=== PATIENT | female | born 1970 | race Caucasian/White ===

== ENCOUNTER 2019-03-23 16:27 | Emergency (ER) | payer MEDICAID ==
[~2019-03-23] VITALS: Ht 172.7 cm; Wt 97.0 kg
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
--- NOTE | 2019-03-23 16:41 | NUR ---
MED RECC ATTEMPTED. PATIENT DOESN'T KNOW MEDICINES. EXTERNAL HX FUNCTION NOT PULLING ANY MEDICINE REPORTS SHE FILLS RX AT [facility] IN [place]-WILL CONTACT PHARMACY TO CALL FOR MED RECC
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
[2019-03-23] MEDS ORDERED: ASPIRIN 81 MG TABLET CHEW ONE (16:56)
[2019-03-23] MEDS ORDERED: ASPIRIN 81 MG TABLET CHEW PO ONE (17:00)
[2019-03-23] MEDS ORDERED: FURO40TA6 PO (17:03)
[2019-03-23] MEDS ORDERED: LISI-170 PO (17:03)
[2019-03-23] MEDS ORDERED: AMLO10TA4 PO (17:03)
[2019-03-23] MEDS ORDERED: METO25TA35 PO (17:03)
--- NOTE | 2019-03-23 17:03 | NUR ---
Miter Grinder Operator called milena for [facility] - input into system prescribed lasix, metoprolol, lisinopril, norvasc by dr. nhi wallace ([phone])
[2019-03-23 17:13] VITALS: BP 128/70
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
[2019-03-23 17:26] LABS: ALBUMIN 3.4 g/dL (3.4-5.0); ANION GAP 11 mmol/L (5-15); CHLORIDE 114 mmol/L (98-107)
[2019-03-23 17:28] LABS: CREATININE 1.49 mg/dL (0.55-1.02)
[2019-03-23 17:45] LABS: BASOPHILS # (AUTO) 0.05 x10^3/uL (0-0.1); BASOPHILS % (AUTO) 1 % (0-1); EOSINOPHILS # (AUTO) 0.28 x10^3/uL (0-0.4); EOSINOPHILS % (AUTO) 3 % (1-7); LYMPHOCYTES # (AUTO) 1.77 x10^3/uL (1-3.4); LYMPHOCYTES % (AUTO) 22 % (22-44); MD NO; MEAN CORPUSCULAR HEMOGLOBIN 24.7 pg (27.0-34.8); MEAN CORPUSCULAR HGB CONC 31.2 g/dL (32.4-35.8); MEAN CORPUSCULAR VOLUME 79.2 fL (80-100); MEAN PLATELET VOLUME 7.9 fL (7.4-10.4); MONOCYTES % (AUTO) 9 % (2-9); NEUTROPHILS # (AUTO) 5.36 x10^3/uL (1.8-6.8); NEUTROPHILS % (AUTO) 66 % (42-75); PLATELET COUNT 356 x10^3/uL (130-400); RED BLOOD COUNT 3.41 x10^6/uL (3.82-5.3)
--- NOTE | 2019-03-23 18:08 | NUR ---
Patient/Caregiver given discharge instructions and they have confirmed that they understand the instructions. Patient ambulatory with steady gait.
== END 2019-03-23 18:09 | disposition home or self-care (01) ==
LOC: ED 16:52
DX: R06.00 Dyspnea, unspecified (principal); I50.9 Heart failure, unspecified
CPT/HCPCS: 36415; 71045; 80048; 82040; 84484; 85025; 99284

== ENCOUNTER 2019-04-02 12:06 | Inpatient (IN) | payer MEDICAID ==
[~2019-04-02] VITALS: Ht 172.7 cm; Wt 94.5 kg
[~2019-04-02 12:06] MED LIST: AMLO10TA4 PO; FURO40TA6 PO; LISI-170 PO; METO25TA35 PO
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
--- NOTE | 2019-04-02 12:27 | NUR ---
NO WOUND NOTED ON PT'S HEAD+
--- NOTE | 2019-04-02 12:38 | NUR ---
MD GUTIERRES COMPLETED
--- NOTE | 2019-04-02 12:53 | NUR ---
AFTER XRAY COMPLETED, LAB AT BEDSIDE
[2019-04-02 13:06] LABS: MEAN CORPUSCULAR HGB CONC 30.5 g/dL (32.4-35.8); MEAN CORPUSCULAR VOLUME 75.3 fL (80-100); MEAN PLATELET VOLUME 7.3 fL (7.4-10.4); PLATELET COUNT 364 x10^3/uL (130-400); RED BLOOD COUNT 3.61 x10^6/uL (3.82-5.3); RED CELL DISTRIBUTION WIDTH 20.2 % (9.6-15.2)
[2019-04-02 13:18] LABS: ALBUMIN 3.4 g/dL (3.4-5.0); ANION GAP 8 mmol/L (5-15); CALCIUM 8.6 mg/dL (8.5-10.1); CHLORIDE 116 mmol/L (98-107)
[2019-04-02 13:24] LABS: BASOPHILS # (AUTO) 0.08 x10^3/uL (0-0.1); BASOPHILS % (AUTO) 1 % (0-1); EOSINOPHILS # (AUTO) 0.07 x10^3/uL (0-0.4); EOSINOPHILS % (AUTO) 1 % (1-7); LYMPHOCYTES # (AUTO) 1.76 x10^3/uL (1-3.4); LYMPHOCYTES % (AUTO) 29 % (22-44); MD SCAN; MONOCYTES # (AUTO) 0.53 x10^3/uL (0.2-0.8); MONOCYTES % (AUTO) 9 % (2-9); NEUTROPHILS # (AUTO) 3.73 x10^3/uL (1.8-6.8); NEUTROPHILS % (AUTO) 61 % (42-75)
[2019-04-02 13:25] LABS: ALANINE AMINOTRANSFERASE 33 U/L (12-78); ALKALINE PHOSPHATASE 111 U/L (45-117); BILIRUBIN,TOTAL 0.8 mg/dL (0.2-1.0); CREATININE 0.93 mg/dL (0.55-1.02); TOTAL PROTEIN 7.1 g/dL (6.4-8.2)
--- NOTE | 2019-04-02 13:33 | NUR ---
PT IN BATHROOM CONNECTED TO HER ROOM AND HAD ALREADY URINATED. PT GIVEN WATER AND EXPLAINED TO HER I NEED A URINE SAMPLE LIZA
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
[2019-04-02 14:31] LABS: MICROSCOPIC AUTO
[2019-04-02 14:38] LABS: AMPHETAMINE SCREEN, URINE Negative (Negative); BARBITURATE SCREEN, URINE Negative (Negative); BENZODIAZEPINE SCREEN, URINE Negative (Negative); CANNABINOID SCREEN, URINE Positive (Negative); COCAINE SCREEN, URINE Negative (Negative); CULTURE INDICATED? YES; METHADONE SCREEN, URINE Negative (Negative); OPIATE SCREEN, URINE Negative (Negative)
[2019-04-02 14:40] LABS: ACETAMINOPHEN < 2 mcg/mL (10-30); SALICYLATE LEVEL < 1.7 mg/dL (2.8-20.0)
--- NOTE | 2019-04-02 15:31 | NUR ---
AWAKE, WATCHING TV
--- NOTE | 2019-04-02 17:08 | NUR ---
WATCHING TV/SLEEPING. NO DISTRESS
--- NOTE | 2019-04-02 19:15 | NUR ---
CONTINUES TO HAVE SITTER OUTSIDE ROOM. PT QUITE AND COOPERATIVE
--- NOTE | 2019-04-02 20:25 | NUR ---
REPORT OF PT FROM CHRIS LOZANO AND ASSUMING CARE OF PT AT THIS TIME.
--- NOTE | 2019-04-02 20:50 | NUR ---
GABY GROVE RE-EVALUATING PT. PT STATES THAT SHE STILL FEELS SUICIDAL DESPITE SOBERING UP. BREATHALIZER .89.
--- NOTE | 2019-04-02 21:14 | NUR ---
REPORT TO ALON PEREZ.
--- NOTE | 2019-04-02 22:25 | NUR ---
PT ASLEEP IN [facility] AT THIS TIME; RASHID. SITTER OUTSIDE OF PT ROOM FOR DIRECT OBSERVATION OF PATIENT.
--- NOTE | 2019-04-02 22:38 | NUR ---
Note joseph in EDM - 04/02/19 at 2240 by LHAFEN DAVIS RN: SPOKE WITH ALFREDO Arias RN ON 2N. PT WILL NOT NR ACCEPTED BECAUSE THEY ARE WORRIED ABOUT ETOH DETOX. DRAGLINE OILER AWARE.
--- NOTE | 2019-04-02 22:40 | NUR ---
TP RN: SPOKE WITH IBRAHIMA Arias RN ON 2N. PT WILL NOT NR ACCEPTED BECAUSE THEY ARE WORRIED ABOUT ETOH DETOX. RIBBON INKER AWARE.
--- NOTE | 2019-04-02 23:14 | NUR ---
PT ASLEEP IN [facility] AT THIS TIME; NADN. APONTE IS OUTSIDE OF PT ROOM FOR DIRECT OBSERVATION OF PT AT THIS TIME.
--- NOTE | 2019-04-02 23:26 | NUR ---
Pt woken to repeat breathalyzer. pt not acutely intoxicated anymore. pt breathalyzer updated in emr.
[2019-04-02] MEDS ORDERED: LORazepam 2 MG/ML, 1ML ONE (23:47)
--- NOTE | 2019-04-02 23:50 | NUR ---
PT HAVING MINOR SIGNS OF W/D SYMPTOMS. VERBAL ORDERS RECEIVED FROM DR BRAVO FOR 1 MG IV ATIVAN. IV ACCESS OBTAINED AND MEDICATION ADMINISTERED.
[2019-04-03] VITALS (8 sets, daily range): BP systolic 133–178; BP diastolic 80–121
[2019-04-03] MEDS ORDERED: LORazepam 2 MG/ML, 1ML IVPush ONE
--- NOTE | 2019-04-03 00:16 | NUR ---
PT VSS AND UPDATED IN EMR. PT HAS SITTER OUTSIDE OF ROOM AT THIS TIME FOR DIRECT OBSERVATION OF PT.
[2019-04-03] MEDS ORDERED: NACL IV SCH (01:12)
[2019-04-03] MEDS ORDERED: D5 IV SCH (01:12)
[2019-04-03] MEDS ORDERED: MVI ADULT IV SCH (01:12)
[2019-04-03] MEDS ORDERED: FOLIC ACID IV SCH (01:12)
[2019-04-03] MEDS ORDERED: MAGNESIUM SULFATE IV SCH (01:12)
--- NOTE | 2019-04-03 01:29 | NUR ---
PT ASLEEP IN [facility] AT THIS TIME; RASHID. PT HAS SITTER OUTSIDE OF BEDROOM FOR DIRECT OBSERVATION OF PT.
[2019-04-03] MEDS ORDERED: ALUMINUM/MAG/SIMETHICONE 30 ML UDC PO PRN (01:30)
[2019-04-03] MEDS ORDERED: DIPHENHYDRAMINE 50 MG CAPSULE PO PRN (01:30)
[2019-04-03] MEDS ORDERED: LIDODERM 5% PATCH TD PRN (01:30)
[2019-04-03] MEDS ORDERED: LORazepam 2 MG/ML, 1ML IV PRN ×5 (01:30)
[2019-04-03] MEDS ORDERED: DOCUSATE 100 MG CAPSULE PO PRN (01:30)
[2019-04-03] MEDS ORDERED: THIAMINE 200 MG in DEXTROSE 5% 50 ML IVPB ONE (01:30)
[2019-04-03] MEDS ORDERED: FOLIC ACID 5 MG/ML IM ONE (01:30)
[2019-04-03] MEDS ORDERED: ACETAMINOPHEN 325 MG TABLET PO PRN (01:30)
--- NOTE | 2019-04-03 02:07 | NUR ---
ATTEMPTED REPORT OF PT TO CHRIS WRAY. PER NILS POPE WILL CALL ME BACK FOR REPORT LIZA.
--- NOTE | 2019-04-03 02:18 | NUR ---
PT ASLEEP IN [facility] AT THIS TIME;
[2019-04-03] MEDS ORDERED: cloniDINE 0.1MG PATCH TD SCH (08:00)
[2019-04-03] MEDS ORDERED: LORazepam 2 MG/ML, 1ML IVPush PRN (08:30)
[2019-04-03] MEDS: FOLIC ACID 1 MG TABLET PO SCH (09:07)
[2019-04-03] MEDS: GABAPENTIN 300 MG CAPSULE PO SCH ×3 (09:07→20:25)
[2019-04-03] MEDS: THIAMINE 100MG TABLET PO SCH ×2 (09:07→20:25)
[2019-04-03] MEDS: MULTIVITAMINS/MINERALS TABLET PO SCH (09:07)
[2019-04-03 09:09] LABS: MEAN CORPUSCULAR HEMOGLOBIN 22.6 pg (27.0-34.8); MEAN CORPUSCULAR HGB CONC 30.2 g/dL (32.4-35.8); MEAN CORPUSCULAR VOLUME 74.8 fL (80-100); MEAN PLATELET VOLUME 7.6 fL (7.4-10.4); PLATELET COUNT 312 x10^3/uL (130-400); RED BLOOD COUNT 3.89 x10^6/uL (3.82-5.3); RED CELL DISTRIBUTION WIDTH 19.9 % (9.6-15.2)
[2019-04-03 09:13] LABS: CHLORIDE 110 mmol/L (98-107)
[2019-04-03 09:20] LABS: ALANINE AMINOTRANSFERASE 28 U/L (12-78); ALBUMIN 3.3 g/dL (3.4-5.0); ALKALINE PHOSPHATASE 109 U/L (45-117); ANION GAP 8 mmol/L (5-15); BILIRUBIN,TOTAL 1.6 mg/dL (0.2-1.0); CALCIUM 8.7 mg/dL (8.5-10.1); CREATININE 0.93 mg/dL (0.55-1.02); TOTAL PROTEIN 6.9 g/dL (6.4-8.2)
[2019-04-03 09:47] LABS: MD YES
[2019-04-03 09:49] LABS: ANISOCYTOSIS 1+; BAND#(MANUAL) 0.05 x10^3/uL; BANDS%(MANUAL) 1 % (0-7); EOS#(MANUAL) 0.05 x10^3/uL (0.0-0.4); EOS% (MANUAL) 1 % (1-7); HYPOCHROMIA 1+; LYMPH#(MANUAL) 0.82 x10^3/uL (1-3.4); LYMPHS% (MANUAL) 17 % (22-44); MICROCYTOSIS 1+; MONOS#(MANUAL) 0.58 x10^3/uL (0.3-2.7); MONOS% (MANUAL) 12 % (2-9); POLYCHROMASIA 1+; SEG#(MANUAL) 3.31 x10^3/uL (1.8-6.8); SEGS% (MANUAL) 69 % (42-75)
[2019-04-03 09:50] LABS: OVALOCYTES 1+
[2019-04-03 09:51] LABS: <PLATELET ESTIMATE> ADEQUATE; <PLT MORPHOLOGY> NORMAL PLT MORPH
[2019-04-04 01:18] VITALS: BP 130/84
[2019-04-04 06:27] VITALS: BP 143/88
[2019-04-04 06:29] LABS: MEAN CORPUSCULAR HEMOGLOBIN 22.3 pg (27.0-34.8); MEAN CORPUSCULAR VOLUME 74.2 fL (80-100); MEAN PLATELET VOLUME 7.7 fL (7.4-10.4); PLATELET COUNT 326 x10^3/uL (130-400); RED CELL DISTRIBUTION WIDTH 20.1 % (9.6-15.2)
[2019-04-04 06:41] LABS: ANION GAP 8 mmol/L (5-15); CHLORIDE 110 mmol/L (98-107); CREATININE 1.04 mg/dL (0.55-1.02); IRON LEVEL 121 mcg/dL (50-170)
[2019-04-04 07:08] LABS: % IRON SATURATION 28 % (20-55); TOTAL IRON BINDING CAPACITY 426 mcg/dL (250-450)
[2019-04-04 07:11] LABS: BASOPHILS # (AUTO) 0.08 x10^3/uL (0-0.1); BASOPHILS % (AUTO) 1 % (0-1); EOSINOPHILS # (AUTO) 0.15 x10^3/uL (0-0.4); EOSINOPHILS % (AUTO) 3 % (1-7); LYMPHOCYTES # (AUTO) 1.53 x10^3/uL (1-3.4); LYMPHOCYTES % (AUTO) 27 % (22-44); MD SCAN; MONOCYTES # (AUTO) 0.98 x10^3/uL (0.2-0.8); MONOCYTES % (AUTO) 17 % (2-9); NEUTROPHILS # (AUTO) 2.94 x10^3/uL (1.8-6.8); NEUTROPHILS % (AUTO) 52 % (42-75)
[2019-04-04] MEDS: FOLIC ACID 1 MG TABLET PO SCH (08:29)
[2019-04-04] MEDS: MULTIVITAMINS/MINERALS TABLET PO SCH (08:29)
[2019-04-04] MEDS: THIAMINE 100MG TABLET PO SCH (08:30)
[2019-04-04] MEDS: GABAPENTIN 300 MG CAPSULE PO SCH (08:30)
== END 2019-04-04 15:35 | DRG 885 ==
LOC: ED 16:41 → EDIP 21:00 → 4EST 04-03 02:49
PROVIDERS: ADMIT Internal Medicine; ATTEND Internal Medicine
DX: F33.2 Major depressive disorder, recurrent severe without psychotic features (principal); R45.851 Suicidal ideations; F10.239 Alcohol dependence with withdrawal, unspecified; I50.42 Chronic combined systolic (congestive) and diastolic (congestive) heart failure; F10.229 Alcohol dependence with intoxication, unspecified; F19.94 Other psychoactive substance use, unspecified with psychoactive substance-induced mood disorder; Y90.8 Blood alcohol level of 240 mg/100 ml or more; Z59.0 Homelessness; Z91.14 Patient's other noncompliance with medication regimen; I11.0 Hypertensive heart disease with heart failure
CPT/HCPCS: 36415; 71045; 80048; 80053; 80307; 81001; 82607; 82728; 83540; 83550; 83735; 84100; 84443; 85025; 87086; 93005; 96374; G0378; J3411; J3475; J2060

== ENCOUNTER 2019-04-04 12:26 | Inpatient (IN) | payer MEDICAID ==
[~2019-04-04] VITALS: Ht 172.7 cm; Wt 94.2 kg
[2019-04-04] MEDS ORDERED: ONDANSETRON ODT 4 MG PO PRN (12:30)
[2019-04-04] MEDS ORDERED: DOCUSATE 100 MG CAPSULE PO PRN (12:30)
[2019-04-04] MEDS ORDERED: BISACODYL 10 MG SUPP PR PRN (12:30)
[2019-04-04] MEDS ORDERED: POLYETHYLENE GLYCOL 17 GM PACKET PO PRN (12:30)
[2019-04-04 13:31] VITALS: BP 144/98
[2019-04-04 16:08] VITALS: BP 133/91
[2019-04-04] MEDS: GABAPENTIN 300 MG CAPSULE PO SCH ×2 (16:28→20:42)
[2019-04-04] MEDS: ACAMPROSATE 333 MG TABLET.DR PO SCH ×2 (16:28→20:42)
[2019-04-04 17:41] LABS: CULTURE INDICATED? YES; MICROSCOPIC INDICATED
[2019-04-04] MEDS: LORazepam 1MG TABLET PO SCH (17:48)
[2019-04-04] MEDS ORDERED: ALUMINUM/MAG/SIMETHICONE 30 ML UDC ONE (18:27)
[2019-04-04] MEDS ORDERED: ALUMINUM/MAG/SIMETHICONE 30 ML UDC PO PRN (18:30)
[2019-04-04 19:51] VITALS: BP 137/87
[2019-04-04] MEDS: ACETAMINOPHEN 325 MG TABLET PO PRN (20:44)
[2019-04-04] MEDS: CALCIUM CARBONATE 500 MG TAB.CHEW PO PRN (22:57)
[2019-04-05] MEDS: LORazepam 1MG TABLET PO SCH ×4 (00:24→18:05)
[2019-04-05 06:55] LABS: HCT (SEDRATE) 30.7 % (34.6-47.8)
[2019-04-05 07:15] VITALS: BP 137/87
[2019-04-05 07:29] LABS: CHOL/HDL RATIO 3.1; LDL/HDL RATIO 1.7 (0.5-3.0)
[2019-04-05 07:30] LABS: T4 (THYROXINE) 9.4 mcg/dL (4.8-13.9)
[2019-04-05] MEDS: GABAPENTIN 300 MG CAPSULE PO SCH ×3 (08:40→20:40)
[2019-04-05] MEDS: FOLIC ACID 1 MG TABLET PO SCH (08:40)
[2019-04-05] MEDS: ACAMPROSATE 333 MG TABLET.DR PO SCH ×3 (08:40→20:40)
[2019-04-05] MEDS: THIAMINE 100MG TABLET PO SCH (08:41)
[2019-04-05] MEDS ORDERED: LOSARTAN 50MG TABLET ONE (09:39)
[2019-04-05 09:40] VITALS: BP 120/84
[2019-04-05] MEDS: SERTRALINE 50MG TABLET PO SCH (09:40)
[2019-04-05] MEDS: METOPROLOL TARTRATE 25 MG TABLET PO SCH ×2 (09:41→18:05)
[2019-04-05] MEDS: LOSARTAN 25MG TABLET PO SCH (10:46)
[2019-04-05] MEDS: CALCIUM CARBONATE 500 MG TAB.CHEW PO PRN ×3 (12:29→21:49)
[2019-04-05 18:00] VITALS: BP 127/84
[2019-04-05 20:00] VITALS: BP 134/87
[2019-04-06] MEDS: METOPROLOL TARTRATE 25 MG TABLET PO SCH ×2 (06:00→18:08)
[2019-04-06] MEDS: LORazepam 1MG TABLET PO SCH ×4 (06:01→18:08)
[2019-04-06 07:29] VITALS: BP 143/96
[2019-04-06] MEDS: ACAMPROSATE 333 MG TABLET.DR PO SCH ×3 (08:40→20:11)
[2019-04-06] MEDS: LOSARTAN 25MG TABLET PO SCH (08:41)
[2019-04-06] MEDS: THIAMINE 100MG TABLET PO SCH (08:41)
[2019-04-06] MEDS: SERTRALINE 50MG TABLET PO SCH (08:41)
[2019-04-06] MEDS: GABAPENTIN 300 MG CAPSULE PO SCH ×3 (08:42→22:07)
[2019-04-06] MEDS: FOLIC ACID 1 MG TABLET PO SCH (08:42)
[2019-04-06] MEDS: PANTOPROZOLE 40MG TABLET PO SCH (08:55)
[2019-04-06] MEDS: CALCIUM CARBONATE 500 MG TAB.CHEW PO PRN ×2 (15:11→20:10)
[2019-04-06 18:13] VITALS: BP 143/89
[2019-04-06 19:51] VITALS: BP 124/80
[2019-04-06] MEDS: ACETAMINOPHEN 325 MG TABLET PO PRN (20:11)
[2019-04-07] MEDS: LORazepam 1MG TABLET PO SCH ×4 (00:20→18:48)
[2019-04-07] MEDS: PANTOPROZOLE 40MG TABLET PO SCH (06:03)
[2019-04-07] MEDS: METOPROLOL TARTRATE 25 MG TABLET PO SCH ×2 (06:03→18:48)
[2019-04-07 07:30] VITALS: BP 115/79
[2019-04-07] MEDS: ACAMPROSATE 333 MG TABLET.DR PO SCH ×3 (09:17→20:07)
[2019-04-07] MEDS: LOSARTAN 25MG TABLET PO SCH (09:17)
[2019-04-07] MEDS: FOLIC ACID 1 MG TABLET PO SCH (09:17)
[2019-04-07] MEDS: SERTRALINE 50MG TABLET PO SCH (09:17)
[2019-04-07] MEDS: GABAPENTIN 300 MG CAPSULE PO SCH ×3 (09:17→20:07)
[2019-04-07] MEDS: THIAMINE 100MG TABLET PO SCH (09:17)
[2019-04-07 19:47] VITALS: BP 123/86
[2019-04-08] MEDS: LORazepam 1MG TABLET PO SCH ×4 (00:27→18:17)
[2019-04-08] MEDS: PANTOPROZOLE 40MG TABLET PO SCH (06:06)
[2019-04-08] MEDS: METOPROLOL TARTRATE 25 MG TABLET PO SCH ×2 (06:06→18:17)
[2019-04-08 07:38] VITALS: BP 115/79
[2019-04-08] MEDS: LOSARTAN 25MG TABLET PO SCH (09:07)
[2019-04-08] MEDS: SERTRALINE 50MG TABLET PO SCH (09:07)
[2019-04-08] MEDS: ACAMPROSATE 333 MG TABLET.DR PO SCH ×3 (09:07→20:15)
[2019-04-08] MEDS: FOLIC ACID 1 MG TABLET PO SCH (09:07)
[2019-04-08] MEDS: GABAPENTIN 300 MG CAPSULE PO SCH ×3 (09:07→20:15)
[2019-04-08] MEDS: THIAMINE 100MG TABLET PO SCH (09:07)
[2019-04-08 20:00] VITALS: BP 115/77
[2019-04-09] MEDS: LORazepam 1MG TABLET PO SCH ×5 (00:26→22:08)
[2019-04-09] MEDS: PANTOPROZOLE 40MG TABLET PO SCH (05:48)
[2019-04-09] MEDS: METOPROLOL TARTRATE 25 MG TABLET PO SCH ×2 (05:48→17:11)
[2019-04-09 07:20] VITALS: BP 121/83
[2019-04-09] MEDS: ACAMPROSATE 333 MG TABLET.DR PO SCH ×3 (08:57→22:08)
[2019-04-09] MEDS: FOLIC ACID 1 MG TABLET PO SCH (08:57)
[2019-04-09] MEDS: THIAMINE 100MG TABLET PO SCH (08:57)
[2019-04-09] MEDS: LOSARTAN 25MG TABLET PO SCH (08:57)
[2019-04-09] MEDS: SERTRALINE 50MG TABLET PO SCH (08:57)
[2019-04-09] MEDS: GABAPENTIN 300 MG CAPSULE PO SCH ×3 (08:57→22:08)
[2019-04-09 19:42] VITALS: BP 114/78
[2019-04-09] MEDS: ACETAMINOPHEN 325 MG TABLET PO PRN (22:08)
[2019-04-10 07:15] VITALS: BP 121/79
[2019-04-10] MEDS: PANTOPROZOLE 40MG TABLET PO SCH (07:58)
[2019-04-10] MEDS: LORazepam 1MG TABLET PO SCH ×4 (07:58→23:40)
[2019-04-10] MEDS: METOPROLOL TARTRATE 25 MG TABLET PO SCH ×2 (07:58→18:23)
[2019-04-10] MEDS ORDERED: cloniDINE 0.1MG PATCH TD SCH (09:00)
[2019-04-10] MEDS: SERTRALINE 50MG TABLET PO SCH (09:06)
[2019-04-10] MEDS: GABAPENTIN 300 MG CAPSULE PO SCH ×3 (09:06→20:37)
[2019-04-10] MEDS: THIAMINE 100MG TABLET PO SCH (09:07)
[2019-04-10] MEDS: FOLIC ACID 1 MG TABLET PO SCH (09:07)
[2019-04-10] MEDS: LOSARTAN 25MG TABLET PO SCH (09:07)
[2019-04-10] MEDS: ACAMPROSATE 333 MG TABLET.DR PO SCH ×3 (09:07→20:37)
[2019-04-10 18:15] VITALS: BP 111/74
[2019-04-10 19:44] VITALS: BP 114/78
[2019-04-11] MEDS: LORazepam 1MG TABLET PO SCH ×4 (05:26→23:17)
[2019-04-11] MEDS: PANTOPROZOLE 40MG TABLET PO SCH (05:26)
[2019-04-11 07:24] VITALS: BP 111/74
[2019-04-11] MEDS: GABAPENTIN 300 MG CAPSULE PO SCH ×3 (09:26→20:20)
[2019-04-11] MEDS: ACAMPROSATE 333 MG TABLET.DR PO SCH ×3 (09:26→20:20)
[2019-04-11] MEDS: SERTRALINE 50MG TABLET PO SCH (09:27)
[2019-04-11] MEDS: METOPROLOL TARTRATE 25 MG TABLET PO SCH ×2 (09:27→20:21)
[2019-04-11] MEDS: THIAMINE 100MG TABLET PO SCH (09:27)
[2019-04-11] MEDS: FOLIC ACID 1 MG TABLET PO SCH (09:27)
[2019-04-11] MEDS: LOSARTAN 25MG TABLET PO SCH (09:27)
[2019-04-11 19:56] VITALS: BP 106/73
[2019-04-11] MEDS: ACETAMINOPHEN 325 MG TABLET PO PRN (20:20)
[2019-04-12] MEDS: PANTOPROZOLE 40MG TABLET PO SCH (06:05)
[2019-04-12] MEDS: LORazepam 1MG TABLET PO SCH ×3 (06:05→17:51)
[2019-04-12 07:25] VITALS: BP 111/72
[2019-04-12] MEDS: LOSARTAN 25MG TABLET PO SCH (09:51)
[2019-04-12] MEDS: SERTRALINE 50MG TABLET PO SCH (09:51)
[2019-04-12] MEDS: GABAPENTIN 300 MG CAPSULE PO SCH ×3 (09:51→20:32)
[2019-04-12] MEDS: THIAMINE 100MG TABLET PO SCH (09:51)
[2019-04-12] MEDS: FOLIC ACID 1 MG TABLET PO SCH (09:51)
[2019-04-12] MEDS: ACAMPROSATE 333 MG TABLET.DR PO SCH ×3 (09:51→20:31)
[2019-04-12] MEDS: METOPROLOL TARTRATE 25 MG TABLET PO SCH ×2 (09:52→20:32)
[2019-04-12 19:46] VITALS: BP 110/72
[2019-04-12] MEDS: ACETAMINOPHEN 325 MG TABLET PO PRN (20:32)
[2019-04-13] MEDS: LORazepam 1MG TABLET PO SCH ×4 (00:06→18:09)
[2019-04-13] MEDS: PANTOPROZOLE 40MG TABLET PO SCH (05:27)
[2019-04-13 07:25] VITALS: BP 114/79
[2019-04-13] MEDS: ACAMPROSATE 333 MG TABLET.DR PO SCH ×3 (08:09→20:16)
[2019-04-13] MEDS: GABAPENTIN 300 MG CAPSULE PO SCH ×3 (08:09→20:16)
[2019-04-13] MEDS: THIAMINE 100MG TABLET PO SCH (08:09)
[2019-04-13] MEDS: ACETAMINOPHEN 325 MG TABLET PO PRN (08:09)
[2019-04-13] MEDS: FOLIC ACID 1 MG TABLET PO SCH (08:10)
[2019-04-13] MEDS: LOSARTAN 25MG TABLET PO SCH (08:10)
[2019-04-13] MEDS: SERTRALINE 50MG TABLET PO SCH (08:10)
[2019-04-13] MEDS: METOPROLOL TARTRATE 25 MG TABLET PO SCH ×2 (08:11→20:16)
[2019-04-13 19:55] VITALS: BP 119/77
[2019-04-14] MEDS: LORazepam 1MG TABLET PO SCH ×4 (01:56→18:34)
[2019-04-14] MEDS: PANTOPROZOLE 40MG TABLET PO SCH (06:02)
[2019-04-14 07:07] VITALS: BP 115/82
[2019-04-14] MEDS: THIAMINE 100MG TABLET PO SCH (08:16)
[2019-04-14] MEDS: SERTRALINE 50MG TABLET PO SCH (08:16)
[2019-04-14] MEDS: ACAMPROSATE 333 MG TABLET.DR PO SCH ×3 (08:16→20:35)
[2019-04-14] MEDS: GABAPENTIN 300 MG CAPSULE PO SCH ×3 (08:16→20:37)
[2019-04-14] MEDS: FOLIC ACID 1 MG TABLET PO SCH (08:16)
[2019-04-14] MEDS: LOSARTAN 25MG TABLET PO SCH (08:16)
[2019-04-14] MEDS: METOPROLOL TARTRATE 25 MG TABLET PO SCH ×2 (08:17→20:38)
[2019-04-14 19:50] VITALS: BP 102/69
[2019-04-14] MEDS: ACETAMINOPHEN 325 MG TABLET PO PRN (20:36)
[2019-04-15] MEDS: LORazepam 1MG TABLET PO SCH ×5 (00:58→23:17)
[2019-04-15] MEDS: PANTOPROZOLE 40MG TABLET PO SCH (05:47)
[2019-04-15 07:21] VITALS: BP 113/74
[2019-04-15] MEDS: METOPROLOL TARTRATE 25 MG TABLET PO SCH ×2 (08:36→20:22)
[2019-04-15] MEDS: FOLIC ACID 1 MG TABLET PO SCH (08:36)
[2019-04-15] MEDS: ACAMPROSATE 333 MG TABLET.DR PO SCH ×3 (08:36→20:22)
[2019-04-15] MEDS: SERTRALINE 50MG TABLET PO SCH (08:36)
[2019-04-15] MEDS: LOSARTAN 25MG TABLET PO SCH (08:37)
[2019-04-15] MEDS: THIAMINE 100MG TABLET PO SCH (08:37)
[2019-04-15] MEDS: GABAPENTIN 300 MG CAPSULE PO SCH ×3 (08:37→20:22)
[2019-04-15] MEDS ORDERED: GABA300C10 PO (14:36)
[2019-04-15] MEDS ORDERED: LOSA25TA25 PO (14:36)
[2019-04-15] MEDS ORDERED: ACAM333T7 PO (14:36)
[2019-04-15] MEDS ORDERED: ACID1TAB7 PO (14:36)
[2019-04-15] MEDS ORDERED: PANT40TA5 PO (14:36)
[2019-04-15] MEDS ORDERED: METO25TA35 PO (14:36)
[2019-04-15] MEDS ORDERED: SERT50TA28 PO (14:36)
[2019-04-15] MEDS: LACTOBACILLUS CHEW TABLET PO SCH ×2 (15:33→20:22)
[2019-04-15 19:43] VITALS: BP 111/73
[2019-04-16] MEDS: PANTOPROZOLE 40MG TABLET PO SCH (05:56)
[2019-04-16] MEDS: LORazepam 1MG TABLET PO SCH (05:56)
[2019-04-16 07:11] VITALS: BP 121/79
[2019-04-16] MEDS: LACTOBACILLUS CHEW TABLET PO SCH (08:39)
[2019-04-16] MEDS: SERTRALINE 50MG TABLET PO SCH (08:39)
[2019-04-16] MEDS: THIAMINE 100MG TABLET PO SCH (08:39)
[2019-04-16] MEDS: ACAMPROSATE 333 MG TABLET.DR PO SCH (08:39)
[2019-04-16] MEDS: METOPROLOL TARTRATE 25 MG TABLET PO SCH (08:39)
[2019-04-16] MEDS: GABAPENTIN 300 MG CAPSULE PO SCH (08:39)
[2019-04-16] MEDS: LOSARTAN 25MG TABLET PO SCH (08:40)
[2019-04-16] MEDS: FOLIC ACID 1 MG TABLET PO SCH (08:40)
== END 2019-04-16 11:30 | disposition home or self-care (01) | DRG 885 ==
LOC: 3E 15:33
PROVIDERS: ADMIT Psychiatry & Neurology Psychosomatic Medicine; ATTEND Psychiatry & Neurology Psychosomatic Medicine
DX: F32.2 Major depressive disorder, single episode, severe without psychotic features (principal); R45.851 Suicidal ideations; E66.9 Obesity, unspecified; Z68.31 Body mass index [BMI] 31.0-31.9, adult; F10.20 Alcohol dependence, uncomplicated; F15.10 Other stimulant abuse, uncomplicated; G47.00 Insomnia, unspecified; G89.29 Other chronic pain; I11.0 Hypertensive heart disease with heart failure; I50.9 Heart failure, unspecified; K21.9 Gastro-esophageal reflux disease without esophagitis; Z59.0 Homelessness; Z82.49 Family history of ischemic heart disease and other diseases of the circulatory system
CPT/HCPCS: 36415; 80061; 81001; 82140; 84436; 85651; 86592; 87086

== ENCOUNTER 2019-05-19 11:06 | Emergency (ER) | payer MEDICAID ==
[~2019-05-19] VITALS: Ht 157.5 cm; Wt 85.0 kg
[~2019-05-19 11:06] MED LIST changes: +ACAM333T7 PO; +ACID1TAB7 PO; +GABA300C10 PO; +LOSA25TA25 PO; +PANT40TA5 PO; +SERT50TA28 PO
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
[2019-05-19] MEDS ORDERED: DIPH,PERTUSS(ACELL),TET VAC/PF 0.5 ML IM-VACC ONE ×2 (11:23→11:30)
[2019-05-19] MEDS ORDERED: LIDOCAINE-MPF 1%, 5ML ONE (11:23)
[2019-05-19] MEDS ORDERED: LIDOCAINE-MPF 1%, 5ML INFIL ONE (11:30)
[2019-05-19] MEDS ORDERED: PLEASE ENTER HEIGHT AND WEIGHT MC SCH (11:30)
--- NOTE | 2019-05-19 11:30 | NUR ---
Pt states she takes multiple medications daily, states she does not remember the names of these medications or when she last took them.
--- NOTE | 2019-05-19 12:37 | NUR ---
Pt resting in bed, watching tv. Denies any needs at this time.
--- NOTE | 2019-05-19 13:19 | NUR ---
Pt desats in sleep. Placed on NC at 3.5L while napping. Vitals WNL at this time.
--- NOTE | 2019-05-19 14:58 | NUR ---
Attempted to wean off of oxygen onto room air, pt sat 70-77% on RA. Placed back on oxygen at this time, pt still sleepy and napping off and on. Denies any needs or concerns at this time.
--- NOTE | 2019-05-19 15:15 | NUR ---
Pt sleeping in bed. Oxygen titrated from 3L to 1L, 91% on 1L.
--- NOTE | 2019-05-19 15:33 | NUR ---
Pt still sleeping in bed. Pt trialed on room air, sats dropped to 83%. Pt placed back on 1L.
--- NOTE | 2019-05-19 17:00 | NUR ---
ASSUMED CARE OF PT FROM PIOTR
--- NOTE | 2019-05-19 18:33 | NUR ---
Pt resting in bed with eyes closed, resp even and unlabored, NADN.
[2019-05-19 18:55] VITALS: BP 140/88
--- NOTE | 2019-05-19 18:56 | NUR ---
PT IS SITTING UP IN BED, CALM AND COOPERATIVE. DENIES ANY NEEDS.
--- NOTE | 2019-05-19 19:06 | NUR ---
GAVE REPORT TO JOI PEREZ
--- NOTE | 2019-05-19 19:26 | NUR ---
ASSUMED CARE FOR THIS PT.
--- NOTE | 2019-05-19 19:54 | NUR ---
pt given dc paperwork, verbaLIZED understanding for suture removal in 6 days and circled on paperwork with rx given. pt amb to dc desk, stated her is coming from [place] to pick her up., no other needs.
== END 2019-05-19 19:56 | disposition home or self-care (01) ==
LOC: ED 11:54
DX: S01.511A Laceration without foreign body of lip, initial encounter (principal); S01.81XA Laceration without foreign body of other part of head, initial encounter; F32.9 Major depressive disorder, single episode, unspecified; W19.XXXA Unspecified fall, initial encounter; Y93.89 Activity, other specified; Y92.89 Other specified places as the place of occurrence of the external cause; Y99.8 Other external cause status
CPT/HCPCS: 12011; 13151; 90471; 90715

== ENCOUNTER 2019-05-23 15:22 | Inpatient (IN) | payer MEDICAID ==
[~2019-05-23] VITALS: Ht 172.7 cm; Wt 98.5 kg
[2019-05-28 07:34] VITALS: BP 148/89
== END 2019-05-28 14:23 | disposition home or self-care (01) | DRG 720 ==
LOC: ED 17:02 → EDIP 18:11 → CCU 19:39 → ICU 05-25 19:25 → 3NE 05-26 11:10
PROVIDERS: ADMIT Hospitalist; ATTEND Hospitalist
PROC: 5A1935Z Respiratory Ventilation, Less than 24 Consecutive Hours (ICD-10-PCS; principal; 2019-05-23)
PROC: 0BH17EZ Insertion of Endotracheal Airway into Trachea, Via Natural or Artificial Opening (ICD-10-PCS; 2019-05-23)
PROC: 02HV33Z Insertion of Infusion Device into Superior Vena Cava, Percutaneous Approach (ICD-10-PCS; 2019-05-23)
PROC: B548ZZA Ultrasonography of Superior Vena Cava, Guidance (ICD-10-PCS; 2019-05-23)
DX: A41.9 Sepsis, unspecified organism (principal); I21.A1 Myocardial infarction type 2; J96.01 Acute respiratory failure with hypoxia; I33.0 Acute and subacute infective endocarditis; R65.21 Severe sepsis with septic shock; I13.0 Hypertensive heart and chronic kidney disease with heart failure and stage 1 through stage 4 chronic kidney disease, or unspecified chronic kidney disease; I50.32 Chronic diastolic (congestive) heart failure; J15.9 Unspecified bacterial pneumonia; D50.9 Iron deficiency anemia, unspecified; F10.10 Alcohol abuse, uncomplicated; F15.10 Other stimulant abuse, uncomplicated; D72.823 Leukemoid reaction; S01.511A Laceration without foreign body of lip, initial encounter; Z99.11 Dependence on respirator [ventilator] status; E87.2 Acidosis; K72.90 Hepatic failure, unspecified without coma; Z90.49 Acquired absence of other specified parts of digestive tract; N18.9 Chronic kidney disease, unspecified; K76.0 Fatty (change of) liver, not elsewhere classified; N39.0 Urinary tract infection, site not specified; I35.0 Nonrheumatic aortic (valve) stenosis; B96.20 Unspecified Escherichia coli [E. coli] as the cause of diseases classified elsewhere; B17.9 Acute viral hepatitis, unspecified; F32.9 Major depressive disorder, single episode, unspecified; G24.9 Dystonia, unspecified; E66.9 Obesity, unspecified; E83.42 Hypomagnesemia; E87.6 Hypokalemia; N17.9 Acute kidney failure, unspecified; G47.00 Insomnia, unspecified; B96.89 Other specified bacterial agents as the cause of diseases classified elsewhere; Z79.899 Other long term (current) drug therapy; Z79.1 Long term (current) use of non-steroidal anti-inflammatories (NSAID); Y92.89 Other specified places as the place of occurrence of the external cause
CPT/HCPCS: 36415; 36600; 71045; 76700; 80048; 80053; 80074; 80202; 80307; 81001; 82140; 82274; 82330; 82436; 82533; 82570; 82803; 83540; 83550; 83605; 83690; 83735; 83880; 84100; 84133; 84145; 84300; 84443; 84478; 84484; 85025; 85520; 85610; 85651; 86140; 87040; 87070; 87077; 87081; 87086; 87186; 87205; 93005; 93306; 94002; 94003; 99291; 99292; G0378; J0610; J0696; J1644; J1650; J2704; J3370; J3411; J3475; J3480; J2060; J7030; J7040